=== PATIENT | female | born 1960 | race Caucasian/White ===

== ENCOUNTER 2022-07-28 10:05 | Outpatient (CLI) | payer BC | END 2022-07-28 10:06 | disposition home or self-care (01) | LOC: BICMAMMO 10:05 | PROVIDERS: ATTEND Physician Assistant | DX: Z12.31 Encounter for screening mammogram for malignant neoplasm of breast (principal); Z98.890 Other specified postprocedural states | CPT/HCPCS: 77063; 77067 ==

== ENCOUNTER 2022-12-26 09:15 | Outpatient (CLI) | payer BC | END 2022-12-26 09:16 | disposition home or self-care (01) | LOC: BICULT 09:15 | PROVIDERS: ATTEND Physician Assistant | DX: R22.31 Localized swelling, mass and lump, right upper limb (principal) | CPT/HCPCS: 76882 ==

== ENCOUNTER 2024-11-21 09:49 | Outpatient (CLI) | payer BC, MEDICARE | END 2024-11-21 09:50 | disposition home or self-care (01) | LOC: BICMAMMO 09:49 | PROVIDERS: ATTEND Physician Assistant | DX: Z12.31 Encounter for screening mammogram for malignant neoplasm of breast (principal); M81.0 Age-related osteoporosis without current pathological fracture; Z78.0 Asymptomatic menopausal state; Z80.3 Family history of malignant neoplasm of breast; Z98.890 Other specified postprocedural states | CPT/HCPCS: 77063; 77067; 77080 ==

== ENCOUNTER 2025-07-17 11:42 | Outpatient (CLI) | payer MEDICARE ==
[2025-07-19 06:59] LABS: Estimated GFR - POC 82.0
== END 2025-07-17 11:43 | disposition home or self-care (01) ==
LOC: SJX 11:42
PROVIDERS: ATTEND Physician Assistant
DX: R42 Dizziness and giddiness (principal)
CPT/HCPCS: 36415; 70553; 76376; 82565